=== PATIENT | male | born 1960 | race Caucasian/White ===

== ENCOUNTER 2018-01-07 05:32 | Day surgery (SDC) | payer OTHER ==
[~2018-01-07 05:32] MED LIST: ASA81 MG PO; CRESTOR20 MG PO; FORTAMET1000 MG PO; GLIMEPIRIDE4 MG PO; LOSARTAN POTASS25 MG PO; METOPROLOL SUCC25 MG PO; PLAVIX75 MG PO
== END 2018-01-07 11:50 | disposition home or self-care (01) ==
LOC: CIR.AMB 05:32
DX: M54.12 Radiculopathy, cervical region (principal)